=== PATIENT | male | born 1950 | race Caucasian/White ===

== ENCOUNTER 2017-07-18 16:32 | Emergency (ER) | payer MEDICARE, BC ==
[2017-07-18 17:45] VITALS: BP 113/72
[2017-07-18] MEDS ORDERED: HYDROcodone/ACETAMINOPHEN 1 EACH TABLET PO ONE (17:49)
--- NOTE | 2017-07-18 17:49 | ERNOTE ---
Abdominal HPI - Narrative Date of Service: 07/18/17 - General Chief Complaint: Abdominal Pain Time Seen by Provider: 07/18/17 17:03 Source: patient, family Exam Limitations: no limitations - Immun/Allergies/Home Medications Immunizatons: IMMUNIZATION HX Immunizations Up to Date Yes History of Influenza Vaccine No Hx Pneumococcal Vaccination No Allergies/Adverse Reactions: Allergies ampicillin [Ampicillin] Adverse Reaction (Unknown, Verified 05/22/17 07:28) pt unsure of his reaction to this medication Home Medications: HOME MEDICATIONS Aspirin [Aspir-Low] 81 mg PO DAILY 05/22/17 [Last Taken 05/22/17 06:15] Latanoprost 2.5 ml OP HS 05/22/17 [Last Taken 05/22/17 06:15] Lisinopril/Hydrochlorothiazide [Lisinopril-Hctz 20-25 mg Tab] 1 DAILY 05/22/17 [ Last Taken 05/22/17 06:15] Omeprazole 40 mg PO DAILY 05/22/17 [Last Taken 05/22/17 06:15] Pravastatin Sodium [Pravachol] 20 mg PO DAILY 05/22/17 [Last Taken 05/22/17 06: 15] HYDROcodone/ACETAMINOPHEN [[place] 5-325] 1 tab PO Q4H PRN #40 tab 07/18/17 [Last Taken Unknown] - History of Present Illness Narrative: patient fell a few weeks ago , sustained lmbar compression fracture since then has had right groin pain that has not improved, has been to dr varner. Timing: constant, getting worse Quality: moderate, sharpness, throbbing Activities at Onset: other - fall Modifying Factors - (Improves): Present: rest Modifying Factors - (Worsens): Present: movement Associated Symptoms: Present: denies symptoms Prior Abdominal Problems: Present: none Prior Treatment: Present: recently seen, treated by physician Review of Systems - Narrative Narrative: unremarkable - Review of Systems Constitutional: Present: See HPI EYE: Present: no symptoms reported ENT: Present: no symptoms reported Respiratory: Present: no symptoms reported Cardiology: Present: no symptoms reported Gastrointestinal/Abdominal: Present: See HPI Genitourinary: Present: no symptoms reported Musculoskeletal: Present: See HPI, back pain, joint pain Skin: Present: no symptoms reported Neurological: Present: no symptoms reported Endocrine: Present: no symptoms reported Hematologic/Lymphatic: Present: no symptoms reported Psych: Present: no symptoms reported All Other Systems: All systems neg except as marked - Narrative Narrative: unremarkable - Patient's Past Medical History Patient History - Medical: History Unknown Patient History - Cardiac/Respiratory: Hypertension Patient History - Cancer: No Hx of Cancer Patient History - Surgical Procedures: Noncontributory, Orthopedic Patient History - Other: None - Family History Family History:: no untoward family reactions to anesthesia, no familial bleeding tendencies, no family history of clotting disorders, no family history of premature - Social History Living Situations: home Abuse History: No History of abuse Psych History: No pertinent hx Does anyone smoke in the home?: Yes Smoking Status: Current every day smoker Have you smoked in the past 12 months: Yes Do you dip or chew tobacco: No Patient requests Smoking Cessation Consult: No Initiate information on Smoking Cessation: No Alcohol Use: heavy Drug Use: none - Immunizations Immunizations Up to Date: Yes Hx Pneumococcal Vaccination: No History of Influenza Vaccine: No Physical Exam - Physical Exam General Appearance: Present: moderate distress Head Exam: Present: normal inspection, no evidence of injury Eye Exam: Normal inspection: bilateral, PERRL: bilateral, EOMI: bilateral Ears, Nose, Throat: Present: normal ENT inspection Neck: Present: normal inspection, nontender Respiratory: Present: no respiratory distress, normal breath sounds, no accessory muscle use, chest nontender, lungs clear Cardiovascular/Chest: Present: regular rate, rhythm, no murmur, normal peripheral pulses Peripheral Pulses: N=norm/S=strong/W=weak/B=bound/A=absent: Carotid (R): Normal , Carotid (L): Normal, Radial (R): Normal, Radial (L): Normal, Femoral (R): Normal Gastrointestinal/Abdominal: Present: normal bowel sounds, nontender, nondistended, soft, no organomegaly Male Genitals Exam: Present: normal genitalia, normal prostate, no hernia, other - pain over inquinql ligament Back Exam: Present: vertebral tenderness - pain in l-5 region , decreased range of motion Extremity Exam: Present: normal inspection, non-tender, normal range of motion, no edema Neurological Exam: Present: alert, oriented, normal mood/affect, no motor/ sensory deficits DTR: N=norm/NB=norm/brisk/A=abs/DD=dull/dimin/HC=hyperactive: Bicep (R): Normal , Bicep (L): Normal, Tricep (R): Normal, Tricep (L): Normal, Knee (R): Normal, Knee (L): Normal Skin Exam: Present: normal color, warm/dry Lymphatic Exam: Present: no adenopathy ED Progress - Date and Time Seen: Date and Time: 07/18/17 17:43 condition unchanged - Vital Signs Patient's Vital Signs:: I have reviewed the patient's vital signs. Vital Signs: Vital Signs 07/18/17 07/18/17 16:38 17:25 Temperature 36.6 C Pulse Rate 82 75 Respiratory 16 16 Rate Blood Pressure 116/65 138/71 O2 Sat by Pulse 95 95 Oximetry - X-Ray X-Ray #2 X-Ray: pelvis - l-5 cmpression fracture pelvis and hips neafative for fracture Interpretation: Interp. by me - l-5 compression fracture - Progress/Reassessment Chief Complaint: Abdominal Pain Progress:: Unchanged - Transfer of Care Expected Disposition: Discharge Plan - Plan Plan: to be discharged Departure Clinical Impression: Ilio-inguinal strain - Departure Disposition: Home self-care Condition: Fair Instructions: Muscle Strain, [id number] Referrals: Silvia Garcia, [facility] [Primary Care Provider] - Prescriptions: HYDROcodone/ACETAMINOPHEN [[place] 5-325] 1 tab PO Q4H PRN #40 tab PRN Reason: Pain
[2017-07-18] MEDS ORDERED: HYDROcodone/ACETAMINOPHEN 1 EACH TABLET ONE (18:05)
== END 2017-07-18 18:12 | disposition home or self-care (01) ==
LOC: ER 16:32
DX: F17.200 Nicotine dependence, unspecified, uncomplicated; W19.XXXA Unspecified fall, initial encounter; S39.011A Strain of muscle, fascia and tendon of abdomen, initial encounter